=== PATIENT | male | born 1950 ===

== ENCOUNTER 2021-05-03 08:45 | Outpatient (RCR) | payer MEDICARE, SELFPAY ==
--- NOTE | 2021-05-03 09:28 | PC.NURSE ---
Felipe's called the program after community meeting. She stated that they were under the impression that he would be attending individual therapy not group therapy. She stated that Felipe would not be able to talk in groups as he has social anxiety and panic. She stated they were interested in individual therapy and would like to talk to [facility] where Milli works. I gave her the phone number to [facility].
== END 2021-05-03 10:00 | disposition home or self-care (01) ==
LOC: HO.PHPA 08:45
PROVIDERS: PCP Family Medicine; Visit Provider Psychiatry & Neurology Psychiatry
DX: F40.10 Social phobia, unspecified (principal); F41.0 Panic disorder [episodic paroxysmal anxiety]; F34.1 Dysthymic disorder; F10.20 Alcohol dependence, uncomplicated
CPT/HCPCS: 90791